=== PATIENT | female | born 2005 | race Caucasian/White ===

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

== ENCOUNTER 2025-03-01 18:59 | Observation (INO) | payer OTHER, SELFPAY ==
[2025-03-01] VITALS (67 sets, daily range): BP systolic 98–127; BP diastolic 45–74; PULSE 28–151; RESP 36; TEMP 37.3–38.4; O2SAT 77–100; BMI 25.2
--- NOTE | ~2025-03-01 | US_ITS ---
EXAMINATION: US OB BPP wo non-stress DATE: 03/01/2025 20:57 INDICATION: Decreased movement TECHNIQUE: Real-time pelvic ultrasound was performed. The interpreting radiologist was not present for the study. COMPARISON: None. FINDINGS: There is a single living fetus in vertex presentation. The placenta is anterior and not low-lying. heart rate is 162 beats per minute (bpm). Normal deepest vertical pocket measurement of 3.6 cm. Biophysical profile performed by the technologist: breathing (30 sec sustained breathing in 30 minutes): 2 out of 2 movement (3 gross body movements in 30 minutes): 2 out of 2 tone (one episode of ezpmfpw-joyobuqtb-opzjhib limb movement): 2 out of 2 Amniotic fluid pocket (2 cm): 2 out of 2 Total score: 8 out of 8 IMPRESSION: 1. Single living fetus in vertex presentation with heart rate of 162 bpm. 2. Biophysical profile 8 out of 8. Reviewed, dictated and finalized at location A.
--- NOTE | 2025-03-01 19:23 | OBADM ---
This patient, Debbie Vviar, admitted to the OB room Labor/Delivery/Recovery 118 for observation. Patient/family oriented to hospital policies and general routines including ID bracelet, bed and alarms, visiting hours, pain management, procedures, bathroom and other care routines, personal items, smoking policy, room service/diet, and visiting hours. Patient/Family are encouraged to report perceived risks to care and to ask questions if they do not understand what they are told or what they should do.
[2025-03-01 21:25] LABS: Need Manual Microscopic Reviewed; Non Pathogenic Casts 0-2
[2025-03-01 21:39] LABS: Add Urine Microscopic? YES; Appearance Urine Cloudy (Clear); Glucose Urine UA Negative (Negative); Leukocyte Esterase Ur 1+ LEU/UL (Negative); Nitrate Urine Negative (Negative); Specific Grav Ur 1.011 (1.001-1.035)
[2025-03-01] MEDS: ACETAMINOPHEN 500 MG TABLET 1000 MG PO (22:35)
[2025-03-01] MEDS: LACTATED RINGERS 1,000 ML 999 ML IV CONT (22:35)
[2025-03-02] VITALS: BP 114/65; PULSE 116
--- NOTE | 2025-03-03 07:27 | PM.OBTRLD ---
OB - Triage/Final Diagnosis Visit Information Date of evaluation: 03/03/25 Reason for evaluation: other (fever) Comments/Additional reasons for admission: I have assessed the risk for this patient, Debbie Vivar, and determined that she would benefit from observation care. Evaluation Laboratory results: Laboratory Tests 03/01/25 21:06 Urine Color Yellow Urine Appearance Cloudy H Urine pH 6.0 Ur Specific [place] 1.011 Urine Protein 1+ H Urine Glucose (UA) Negative Urine Ketones 3+ H Ur Blood (Man) Negative Urine Nitrate Negative Urine Bilirubin Negative Urine Urobilinogen 1.0 Add Ur Microanalysis Reviewed Leukocyte Esterase Rfl 1+ H Urine RBC 0-2 Urine WBC 11-20 H Ur Squamous Epith Cells Many H Urine Bacteria 2+ H Urine Casts 0-2
== END 2025-03-02 00:22 | disposition home or self-care (01) ==
PROVIDERS: Advanced Practice Midwife; Admitting Provider Obstetrics & Gynecology; Visit Provider Obstetrics & Gynecology
DX: O26.893 Other specified pregnancy related conditions, third trimester (principal); R50.9 Fever, unspecified; Z3A.37 37 weeks gestation of pregnancy
CPT/HCPCS: 76819; 81001; A9270; G0378; G0379; J7120

== ENCOUNTER 2025-03-21 18:49 | Inpatient (IN) | payer OTHER, SELFPAY ==
[2025-03-21] VITALS (69 sets, daily range): BP systolic 114–133; BP diastolic 69–99; PULSE 38–120; TEMP 36.6; O2SAT 83–100; BMI 23.4
[2025-03-21 19:33] LABS: Hematocrit 30.9 % (37.0-47.0); Hemoglobin 9.7 g/dL (12.0-15.0); Immature Granulocyte Percent A 0.5 % (0-0.5); Lymphocytes Absolute Auto 2.50 K/mm3 (0.9-3.2); Mean Corpuscular HGB Conc 31.4 g/dl (32-36); Mean Corpuscular Hemoglobin 24.5 pg (26-34); Mean Corpuscular Volume 78.0 fl (80-100); Nucleated Red Blood Cells Absolute Auto 0.000 K/mm3 (0.0-0.012); Nucleated Red Blood Cells Perc 0.0 % (0.0-0.2); Platelet Count Result 593 k/mm3 (150-375); Red Blood Count 3.96 M/mm3 (4.2-5.4); White Blood Count 11.1 K/mm3 (4.5-10.0)
--- NOTE | 2025-03-21 19:43 | LDADM ---
This patient, Debbie Vivar, was admitted to Labor/Delivery/Recovery 104 on 03/21/25 at 18:49. Plans for labor, pain management and were discussed with patient. Patient/family oriented to hospital policies and general routines including ID bracelet, bed and alarms, visiting hours, pain management, procedures, bathroom and other care routines, personal items, smoking policy, room service/diet and guest tray routines, infant security routines, and visiting hours. Patient/Family are encouraged to report perceived risks to care and to ask questions if they do not understand what they are told or what they should do. See OBIX for further documentation.
[2025-03-21 20:13] LABS: Syphilis IgG/IgM Antibody Non-Reactive (Nonreactive)
[2025-03-22] VITALS (247 sets, daily range): BP systolic 93–164; BP diastolic 46–142; PULSE 52–223; RESP 16; TEMP 36.6–37.2; O2SAT 83–100
[2025-03-22] MEDS: LACTATED RINGERS 1,000 ML 125 ML IV CONT ×3 (04:19→07:42)
--- NOTE | 2025-03-22 06:11 | P.PNAN_ITS ---
Anes - Eval Pre Procedure Procedure: Labor Epidural Date/Time: 03/22/25 06:11 Surgeon: Andrew Preop Diagnosis: Labor Pain Pre Op Diagnosis: IOL Patient Data Age: 20 Gender: F Height: 1.63 m Weight: 62 kg Last Vital Signs Temp 36.6 C 03/21/25 19:30 Pulse 76 03/22/25 05:16 BP 133/81 03/22/25 05:16 Pulse Ox 98 03/22/25 06:08 Allergies Allergy/AdvReac Type Severity Reaction Status Date / Time Penicillins Allergy Rash Verified 03/01/25 20:05 Home Medications ?Medication ?Instructions ?Recorded ?Confirmed ?Type metoclopramide HCl 10 mg tablet mg 02/16/25 History scopolamine base 1 mg over 3 days 1 patch transdermal Q72H 02/16/25 03/01/25 History transdermal patch Laboratory Tests 03/21/25 19:26 WBC 11.1 H K/mm3 (4.5-10.0) RBC 3.96 L M/mm3 (4.2-5.4) Hgb 9.7 L D g/dL (12.0-15.0) Hct 30.9 L % (37.0-47.0) MCV 78.0 L fl (80-100) MCH 24.5 L pg (26-34) MCHC 31.4 L g/dl (32-36) RDW 17.1 H % (11.5-14.5) Plt Count 593 H k/mm3 (150-375) MPV 10.3 fl (7.4-10.4) Immature Gran % (Auto) 0.5 % (0-0.5) Neut % (Auto) 65.8 % (45.5-73.1) Lymph % (Auto) 22.5 % (18.3-44.2) [place] % (Auto) 10.2 H % (2.6-8.5) Eos % (Auto) 0.6 % (0-4.4) Baso % (Auto) 0.4 % (0.2-1.2) Lymph # (Auto) 2.50 K/mm3 (0.9-3.2) Marin # (Auto) 1.1 H K/mm3 (0.1-0.6) Eos # (Auto) 0.1 K/mm3 (0-0.3) Baso # (Auto) 0.0 K/mm3 (0.0-0.1) Abs Immat Gran (auto) 0.06 H K/mm3 (0.00-0.031) Absolute Neuts (auto) 7.3 H K/mm3 (1.3-6.7) Absolute Nucleated RBC 0.000 K/mm3 (0.0-0.012) Nucleated RBC % 0.0 % (0.0-0.2) Syphilis IgG/IgM Ab Non-reactive (Nonreactive) Blood Type A Positive Antibody Screen Negative Patient hx anesthesia problems: none Family hx anesthesia problems: none Results Review: All pre-operative results and documents have been reviewed as part of the pre- operative evaluation. [facility] Past Medical History Medical History Asthma GERD (gastroesophageal reflux disease) UTI (urinary tract infection) Family History Family History Other Patient denies significant medical history Social History Social History Smoking status: Never smoker Substance use: never Substance use type: does not use Lack of Transportation: No Lack of Food: Never True Current Housing: I Have Housing Concerned About Future Housing: No Difficulty Paying Gas/Electric Bills: No Difficulty Paying for Meds: No Currently Unemployed: No Education: High School Diploma/GED Difficulty w/ Childcare or Family Care: No Living arrangements: with family Gender identity (if verbalized by the patient): Female Spiritual care concerns: No Exam Day of Procedure 03/22/25 06:11 Patient weight: normal Heart: regular rate and rhythm Lungs: normal air movement Airway: Mallampati scale class II Neurological: alert and oriented
[2025-03-22] MEDS: TERBUTALINE SULFATE 1 MG/ML VIAL 0.25 MG SUB-Q (07:34)
--- NOTE | 2025-03-22 07:59 | WPDOBADMIT ---
Obstetrics - Admit Note Admission Note: record reviewed. No pertinent additions to the history and/or any subsequent changes in the physical findings that are not consistent with the expected course of the were found. Additions to the history and/or subsequent changes in the physical findings follow. Admit for IOL, SVE /-2 AROM mod amount of clear odorless fluid, anticipate vaginal delivery, IUPC placed
[2025-03-22] MEDS: OXYTOCIN 30 UNITS/NS 500 ML 30 UNITS/500 ML BAG IV CONT (08:26)
--- NOTE | 2025-03-22 12:36 | PM.OBPRVD ---
OB - Vaginal Delivery Note Procedure Delivery date: 03/22/25 Events: Elective Induction of Labor Induction method: Per Misoprostol Protocol Delivery augmentation: Rupture of Membranes and Pitocin Delivery monitor: External FHT and Internal Uterine Route of delivery: Episiotomy description: None Laceration Description: Superficial (hemostatic) Specimen: No Quantitative Blood Loss (ml): 100 Anesthesia type: Epidural Disposition: Floor Complications: No immediate complications Narrative: See H&P and notes for details on patient's admission and labor. She progressed to complete cervical dilation and at the appropriate time began pushing. With adequate expulsive efforts by the mother, the baby's head was delivered without difficulty. Nuchal cord was not present. The baby's left shoulder was anterior and delivered under the pubic symphysis without difficulty. The posterior shoulder and the rest of the baby delivered without difficulty. The umbilical cord was doubly clamped and cut after 60 seconds of delayed cord clamping. Care of the was then assumed by the nursing staff. Baby Date of : 03/22/25 Time of : 12:23 Gestational Age by Date: 40 gender: Female presentation: vertex position: Left Occiput Anterior Placenta delivery description: Spontaneous Cord Vessel Description: 3 Vessels and Delayed Cord Clamping
[2025-03-22] MEDS: ACETAMINOPHEN 325 MG TABLET 650 MG PO ×2 (14:06→20:33)
--- NOTE | 2025-03-22 16:35 | OBPPTRN ---
Patient transferred to post room #281 via wheelchair. Support person present. Oriented to unit, room, information board, rooming in, admission packet and security measures. Patient verbalizes understanding.
[2025-03-22] MEDS: DOCUSATE SODIUM 100 MG CAPSULE PO (17:55)
[2025-03-23] VITALS: BP 110/70; PULSE 70; RESP 16; TEMP 36.9; O2SAT 100
[2025-03-23 05:15] LABS: Hematocrit 28.0 % (37.0-47.0); Hemoglobin 8.7 g/dL (12.0-15.0)
[2025-03-23 08:05] VITALS: BP 114/79; PULSE 86; RESP 16; TEMP 36.7; O2SAT 99
[2025-03-23] MEDS: IBUPROFEN 600 MG TABLET PO ×2 (08:15→19:10)
[2025-03-23] MEDS: ACETAMINOPHEN 325 MG TABLET 650 MG PO ×2 (08:15→19:10)
[2025-03-23] MEDS: MULTIVIT/MIN/PREN/FOL AC/IRON TABLET 1 TAB PO (08:15)
--- NOTE | 2025-03-23 10:20 | PC.NURSE ---
Consulted with patient to assess needs related to . Discussed with mother her successes, concerns and any questions she has. We reviewed working with the , supporting breast, protecting her nipples with an optimal deep latch, good positioning, and good hand washing. Encouraged understanding the benefits of skin to skin, responding to feeding cues, frequencies of feeding 8-12 times in 24 hours (approximately 2-3 hours), duration of feedings, milk production, intake/output feeding sheet and signs of adequate intake encouraging swallowing at the breast. Reviewed positioning and alignment, supporting breast, off-centered (asymmetrical latch) and leading with the chin with big, open, wide gape. latched optimally to the [right] breast in [cradle] position. Education given to the mother of how to visualize the suckling (with good rocking jaw motion) swallows (dropping of the lower jaw) and how to listen for drinking at the breast (the ka sound). The was [able] to maintain latch without discomfort to mother. Nipple care reviewed with optimal latch, good positioning and using clean hands when touching her breast. Resources used to facilitate learning were used from the [visual handouts/ tool/mom and baby guide]. Mother voiced understanding of the education shared, to call for assistance if the infant does not latch or if there is discomfort with . Reported to the Primary RN.
--- NOTE | 2025-03-23 10:50 | P.PNOB_ITS ---
OB - PN: Subj Subjective Date/time seen: 03/23/25 10:50 Interval history: PPD#1 s/p Pain controlled Voiding without issue Tolerating general diet , doing well OB - PN: Obj Data Labs 03/23/25 04:06 Labs: Laboratory Results - last 24 hr 03/23/25 04:06 Hgb 8.7 L Hct 28.0 L OB - PN A/P Plan day: 1 Plan: routine care Time Spent With Patient Time: Total time spent is greater than 50% in coordination of care (as documented) at patient's floor/unit and/or counseling patient: Review of Systems 2 Review of Systems: All systems reviewed & are unremarkable except as noted in HPI and below Exam 2 Const: General: comfortable and no acute distress O rientation/consciousness: patient oriented x3 Resp: Effort & Inspection: normal respiratory effort
[2025-03-23 11:48] VITALS: BP 119/69; PULSE 73; RESP 16; TEMP 36.9; O2SAT 97
[2025-03-23] MEDS: LANOLIN (LANSINOH) 7.5 GM CREAM 1 APPLIC TOPICAL (12:31)
--- NOTE | 2025-03-23 14:39 | WPDANLDPN2 ---
Anes-Prog Note L&D Date/Time: 03/23/25 14:39 Comfortable throughout: labor and delivery Neuraxial method: epidural Epidural/Spinal procedure site: clean & non-tender Neuro status: Neuro function grossly intact. Cardiovascular status: normal Respiratory status: normal Airway patency: baseline Mental status: baseline Post-Op hydration status: normal Vital Signs: Last Vital Signs Temp 36.9 C 03/23/25 11:48 Pulse 73 03/23/25 11:48 Resp 16 03/23/25 11:48 BP 119/69 03/23/25 11:48 Pulse Ox 97 03/23/25 11:48 O2 Del Method Room Air 03/22/25 19:30 Pain score (VAS): 0 I/O: Intake & Output 03/22/25 03/23/25 03/23/25 23:59 07:59 15:59 Intake Total 0 100 Output Total 195 Balance -195 100 Post-procedural complaints: none Patient feedback: Patient satisfied with anesthetic care.
[2025-03-23 19:00] VITALS: BP 121/83; PULSE 76; RESP 17; TEMP 36.7; O2SAT 100
[2025-03-24] MEDS: ACETAMINOPHEN 325 MG TABLET 650 MG PO (05:30)
[2025-03-24] MEDS: IBUPROFEN 600 MG TABLET PO (05:30)
[2025-03-24 07:10] VITALS: BP 110/63; PULSE 66; RESP 16; TEMP 36.6; O2SAT 97
--- NOTE | 2025-03-24 07:48 | P.PNOB_ITS ---
OB - PN: Subj Subjective Date/time seen: 03/24/25 07:48 Interval history: PPD#2 s/p Pain controlled Voiding without issue Tolerating general diet , doing well OB - PN: Obj Data Labs 03/23/25 04:06 OB - PN A/P Time Spent With Patient Time: Total time spent is greater than 50% in coordination of care (as documented) at patient's floor/unit and/or counseling patient: Review of Systems 2 Review of Systems: All systems reviewed & are unremarkable except as noted in HPI and below Exam 2 Const: General: cooperative, healthy appearing and comfortable Chest: Chest palpation & inspection: normal inspection of the chest Resp: Effort & Inspection: normal respiratory effort Back/Spine/Pelvis: Back: no CVA tenderness Skin: General skin exam: normal color Neuro: General: patient oriented x3
--- NOTE | 2025-03-24 07:50 | P.DS_ITS ---
DS: Admitting Diagnosis Discharge Date 03/24/25 Admitting Diagnosis IOL DS: Discharge Diagnosis Discharge Diagnosis (1) Vaginal delivery: Code(s): O80 - Encounter for full-term uncomplicated delivery Status: Acute OB - DS: Summary OB Procedures : None OB Procedures Intrapartum: Spontaneous Vag Delivery OB Procedures: : None Peripartum Data Laceration Description: Superficial (hemostatic) Episiotomy description: None Time Spent with Patient Time attestation: Total time spent providing and/or coordinating discharge services: Discharge Plan Discharge Attending physician on discharge: Kai Vernon Discharging Clinician: Radha Luna Patient Disposition: Home Activity: pelvic rest Diet: regular Patient Instructions: Antibiotic Form Patient Language: Bengali Stand Alone Forms: General Discharge Information Follow-up/Referrals: Nakul Morales MD [Physician, [employer]] - 4 Weeks Discharge Medications: Continued scopolamine base 1 mg over 3 days patch 3 day 1 patch transdermal Q72H metoclopramide HCl 10 mg tablet Date of admission: 03/21/25 18:49 Primary Care Provider: BillNahum Admitting Provider: Nakul Morales Attending physician on admission: Nakul Morales Condition: Stable
--- NOTE | 2025-03-24 07:58 | PC.NURSE ---
Patient viewed the discharge video Mother & Baby Care, The First Two Weeks. Patient was given the opportunity and encouraged to ask questions. Patient verbalized understanding of information shared and has been given the mother/baby guide for home reference.
[2025-03-24] MEDS: INFLUENZA VACCINE 45 MCG/0.5 ML SYRINGE IM (08:34)
[2025-03-24] MEDS: MULTIVIT/MIN/PREN/FOL AC/IRON TABLET 1 TAB PO (08:36)
--- NOTE | 2025-03-24 09:15 | PC.NURSE ---
Consulted with mother concerning needs and she shared her ability to independently latch infant optimally without pain. Mother is feeding appropriately for growth of and understands stimulating to eat if needed. has had appropriate feedings in the last 24 hours meets the outcomes for weight, output, blood sugar and jaundice at this time. Reinforced understanding of milk production, transition of milk, signs of adequate intake, transition of stool, prevention/relief of engorgement, plugged ducts, mastitis, responsive watching for feeding cues, community resources (outpatient services and patient already contacted [facility]), and when to call a provider using the resource of the feeding sheet along with the mom and baby guide. She has a breast pump to use as needed. Mother voiced understanding of the information shared, is confident to continue effectively her at home, when to call for assistance, denies any additional assistance or education at this time. Reported to the Primary RN.
[2025-03-27 11:33] VITALS: BP 112/77; PULSE 72; RESP 18; TEMP 36.9; O2SAT 100
== END 2025-03-24 13:56 | disposition home or self-care (01) | DRG 560 ==
LOC: ANHLDR 19:01 → ANHOB2 03-22 16:37
PROVIDERS: Admitting Provider Obstetrics & Gynecology; Visit Provider Obstetrics & Gynecology
DX: O80 Encounter for full-term uncomplicated delivery (principal); Z37.0 Single live birth; Z3A.40 40 weeks gestation of pregnancy; Z23 Encounter for immunization
CPT/HCPCS: 36415; 85014; 85018; 85025; 86593; 86850; 86900; 86901; 90471; 90656; A9270; G0008; J2590; J2795; J3105; J7120